=== PATIENT | female | born 1935 | race Caucasian/White ===

== ENCOUNTER 2018-04-09 16:27 | Emergency (ER) | payer MEDICARE, BC ==
[2018-04-09] MEDS ORDERED: Diazepam TAB(*) 5 MG PO ONE (17:57)
[2018-04-09] MEDS ORDERED: predniSONE TAB* 20 MG PO ONE (17:57)
--- NOTE | 2018-04-09 18:24 | RAD ---
INDICATION: Back pain COMPARISON: Bone survey February 14, 2017 TECHNIQUE: Routine PA, lateral, and oblique imaging was performed . FINDINGS: Bones: There are no acute bony findings. There are arthritic changes at L4-L5 and L5-S1 with disc space narrowing, endplate sclerosis, and facet arthropathy. The findings are stable Alignment: Normal Disc spaces: The remaining disc spaces are well-maintained Soft tissues: There are no soft tissue abnormalities. Other: There is sclerosis about the symphysis pubis consistent with chronic osteitis. 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
--- NOTE | 2018-04-09 18:47 | ED ---
Back Pain - HPI Summary HPI Summary: Complains of left hip pain radiating down left leg 2 days. History of pain in left leg and bilateral knee pain but left hip involvement is new. History of surgery for left side lower back pain [address] Read. Denies trauma, fall, lifting, fever, redness or warmth to left hip, N/V, urinary incontinence, urinary retention, change in bowel movement. Pain is worse with walking, much improved when sitting or lying down. Medical history is Parkinson 's, arthritis. - History of Current Complaint Chief Complaint: EDExtremityLower Stated Complaint: LT LEG PAIN Time Seen by Provider: 04/09/18 17:41 Hx Obtained From: Patient, Family/Steam Presser Pain Intensity: 10 - Allergies/Home Medications Allergies/Adverse Reactions: Allergies Allergy/AdvReac Type Severity Reaction Status Date / Time Sulfa (Sulfonamide Allergy Rash Verified 04/09/18 17:03 Antibiotics) Home Medications: Home Medications Multivitamins/Minerals TAB* [Theragran/minerals TAB*] 1 tab PO DAILY 04/09/18 [ History Confirmed 04/09/18] PMH/Surg Hx/FS Hx/Imm Hx Endocrine/Hematology History: Denies: Hx Diabetes, Hx Systemic Lupus Erythematosus Cardiovascular History: Reports: Hx Hypertension Denies: Hx Congestive Heart Failure, Hx Pacemaker/ICD Respiratory History: Denies: Hx Chronic Obstructive Pulmonary Disease (COPD) GI History: Denies: Hx Gastroesophageal Reflux Disease, Hx Ulcer History: Denies: Hx Dialysis, Hx Renal Disease Musculoskeletal History: Reports: Other Musculoskeletal History - BROKEN LEFT FOOT Denies: Hx Rheumatoid Arthritis, Hx Osteoporosis Sensory History: Reports: Hx Cataracts, Hx Contacts or Glasses Denies: Hx Hearing Aid Opthamlomology History: Reports: Hx Cataracts, Hx Contacts or Glasses Neurological History: Reports: Other Neuro Impairments/Disorders Psychiatric History: Denies: Hx Panic Disorder - Cancer History Hx Chemotherapy: No - Surgical History Surgery Procedure, Year, and Place: tonsilectomy Hx Anesthesia Reactions: No Infectious Disease History: No Infectious Disease History: Denies: Traveled Outside the [place] in Last 30 Days - Social History Alcohol Use: None Substance Use Type: Reports: None Smoking Status (MU): Never Smoked Tobacco Review of Systems Constitutional: Negative Eyes: Negative ENT: Negative Cardiovascular: Negative Respiratory: Negative Gastrointestinal: Negative Genitourinary: Negative Positive: Arthralgia, Myalgia Skin: Negative Neurological: Negative Psychological: Normal All Other Systems Reviewed And Are Negative: Yes Physical Exam - Summary Physical Exam Summary: No redness, ecchymosis, swelling, deformity, extra warmth noted to left hip joint. No redness or swelling to left lower extremity. Full range of motion of left foot, left ankle, left knee. Pain is recreatable with left hip flexion. No pain with flexion or extension of right hip, right knee, right ankle. Mildly tender to palpation in left gluteus, left posterior thigh. PMS intact distally. Vital Signs On Initial Exam: Initial Vitals Temp Pulse Resp BP Pulse Ox 97 F 76 16 170/59 97 04/09/18 17:03 04/09/18 17:03 04/09/18 17:03 04/09/18 17:03 04/09/18 17:03 Appearance: Positive: Well-Appearing Skin: Positive: Warm Head/Face: Positive: Normal Head/Face Inspection Eyes: Positive: Normal Neck: Positive: Supple Respiratory/Lung Sounds: Positive: Clear to Auscultation Cardiovascular: Positive: Normal Abdomen Description: Positive: Nontender Musculoskeletal: Positive: Normal Neurological: Positive: Normal Psychiatric: Positive: Normal AVPU Assessment: Alert - [place] Coma Scale Best Eye Response: 4 - Spontaneous Best Motor Response: 6 - Obeys Commands Best Verbal Response: 5 - Oriented Coma Scale Total: 15 Diagnostics - Vital Signs Vital Signs Temp Pulse Resp BP Pulse Ox 04/09/18 18:04 18 04/09/18 17:03 97 F 76 16 170/59 97 - Laboratory Lab Statement: Any lab studies that have been ordered have been reviewed, and results considered in the medical decision making process. - Radiology lumbar Xray Interpretation: No Acute Changes - stable Disc narrowing and arthritic changes at L4-L5, L5-S1 Radiology Interpretation Completed By: Radiologist Re-Evaluation - Re-Evaluation 1 Re-Evaluation Time: 19:11 Change: Unchanged Comment: Valium did not improve the patient's pain. Back Pain Course/Dx - Course Course Of Treatment: Left hip pain, radiating down left leg with walking 2 days. Positive straight leg test on left lower extremity. No indication of redness, warmth, swelling to joints of left lower extremity and physical exam. Vital signs within normal limits and stable. Imaging shows no acute process. Vitamin F ineffective in treating pain. We will give short course of hydrocodone and have patient follow up with neurologist who manages her prior back pain and arthritis. Family agrees to assist patient with daily living activities. - Diagnoses Provider Diagnoses: Sciatica Discharge - Sign-Out/Discharge Documenting (check all that apply): Discharge/Admit/Transfer - Discharge Plan Condition: Stable Disposition: HOME Prescriptions: HYDROcodone/ACETAMIN 5-325 MG* [[place] 5-325 TAB*] 1 tab PO Q6H PRN 2 Days #8 tab MDD 3-4 tabs PRN Reason: Pain predniSONE TAB* [Deltasone TAB*] 40 mg PO DAILY 5 Days #5 tab Patient Education Materials: Sciatica (ED), Lumbar Radiculopathy (ED), Lower Back Exercises (ED) Referrals: James Max MD [Primary Care Provider] - Additional Instructions: Follow-up with your neurologist Dr. Read. Return to ED for any new or worsening symptoms - Billing Disposition and Condition Condition: STABLE Disposition: HOME
[2018-04-09] MEDS ORDERED: HYDROcodone/ACETAMIN 5-325 MG* 1 TAB PO ONE (19:03)
[2018-04-09 19:36] VITALS: BP 133/77
== END 2018-04-09 19:35 | disposition home or self-care (01) ==
LOC: ED 16:27
DX: M54.32 Sciatica, left side (principal); M51.36 Other intervertebral disc degeneration, lumbar region; Z88.2 Allergy status to sulfonamides
CPT/HCPCS: 72110; 99282; A9270-GY; J7512

== ENCOUNTER 2022-05-18 13:48 | Observation (INO) ==
[2022-05-18 15:15] LABS: ABS Basophils 0.1 10^3/ul (0-0.2); ABS Eosinophils 0.2 10^3/ul (0-0.6); ABS Lymphocytes 2.9 10^3/ul (1.0-4.8); ABS Monocytes 1.1 10^3/ul (0-0.8); ABS Neutrophils 6.7 10^3/ul (1.5-7.7); Hematocrit 41 % (35-47); Hemoglobin 13.5 g/dL (12.0-16.0); Lymphocyte % 26.3 %; Mean Corpuscular HGB Conc 33 g/dL (31-36); Mean Corpuscular Hemoglobin 29 pg (27-31); Mean Corpuscular Volume 89 fL (80-97); Mean Platelet Volume 9.4 fL (7.4-10.4); Platelet Count 235 10^3/uL (150-450); Red Blood Count 4.61 10^6 /uL (3.70-4.87); Red Cell Distribution Width 14 % (10-15); White Blood Count 10.9 10^3/uL (3.5-10.8)
[2022-05-18 16:13] LABS: ALT < 3 U/L (7-52); AST 17 U/L (13-39); Albumin 3.7 g/dL (3.2-5.2); Albumin/Globulin Ratio 1.6 (1-3); Alkaline Phosphatase 43 U/L (35-149); Anion Gap 5 mmol/L (2-11); Blood Urea Nitrogen 16 mg/dL (6-24); C Reactive Protein 6.68 mg/L (<8.01); CO2 Carbon Dioxide 28 mmol/L (22-32); Calcium 8.3 mg/dL (8.6-10.3); Chloride 107 mmol/L (101-111); Globulin 2.3 g/dL (2-4); Glucose 78 mg/dL (70-100); Potassium 3.9 mmol/L (3.5-5.0); Sodium 140 mmol/L (135-145); eGFR CKD-EPI 60.3 (>60)
[2022-05-18] MEDS ORDERED: Enoxaparin 40 MG/0.4 ML SYR SUBCUT SCH (20:00)
[2022-05-18] MEDS: Carbidopa/Levodop 25/100 MG TAB PO SCH (20:13)
[2022-05-18] MEDS ORDERED: Carbidopa/Levodop 25/100 MG TAB PO SCH (21:00)
[2022-05-19 00:35] LABS: Erythrocyte Sed Rate 4 mm/Hr (0-29)
[2022-05-19 06:22] LABS: ABS Eosinophils 0.4 10^3/ul (0-0.6); ABS Lymphocytes 3.4 10^3/ul (1.0-4.8); ABS Neutrophils 4.8 10^3/ul (1.5-7.7); Eosinophil % 3.8 %; Hematocrit 41 % (35-47); Lymphocyte % 35.4 %; Mean Corpuscular HGB Conc 34 g/dL (31-36); Mean Corpuscular Hemoglobin 30 pg (27-31); Mean Corpuscular Volume 90 fL (80-97); Mean Platelet Volume 9.8 fL (7.4-10.4); Platelet Count 241 10^3/uL (150-450); Red Blood Count 4.61 10^6 /uL (3.70-4.87); Red Cell Distribution Width 14 % (10-15); White Blood Count 9.6 10^3/uL (3.5-10.8)
[2022-05-19 06:36] LABS: Albumin 3.7 g/dL (3.2-5.2); Calcium 9.2 mg/dL (8.6-10.3); Potassium 4.7 mmol/L (3.5-5.0); Total Bilirubin 1.6 mg/dL (0.2-1.0)
[2022-05-19 06:42] LABS: Albumin/Globulin Ratio 1.6 (1-3); Globulin 2.3 g/dL (2-4); eGFR CKD-EPI 54.5 (>60)
[2022-05-19] MEDS: Carbidopa/Levodop 25/100 MG TAB PO SCH ×2 (09:44→14:47)
[2022-05-19 15:22] VITALS: BP 155/91
== END 2022-05-19 15:52 | disposition home or self-care (01) ==
LOC: EDHOLD 13:48 → ED 13:48 → SUATTDRO 18:48 → SSU 21:51
PROVIDERS: ADMIT Internal Medicine; ATTEND Internal Medicine

== ENCOUNTER 2024-02-05 16:43 | Inpatient (IN) ==
[2024-02-05 17:36] LABS: Hematocrit 37.7 % (35-45); Hemoglobin 13.1 g/dL (11.5-14.3); Mean Corpuscular Hemoglobin 31.2 pg (27-33); Mean Corpuscular Hgb Conc 34.8 g/dL (31-36); Mean Corpuscular Volume 89.7 fL (80-97); Mean Platelet Volume 9.4 fL (7.5-11.2); Platelet Count 244 10^3/uL (150-450); White Blood Count 24.9 10^3/uL (3.8-11.8)
[2024-02-05 17:44] LABS: INR 1.18 (0.83-1.13)
[2024-02-05 18:03] LABS: High Sens Troponin Baseline 9 pg/mL (<15)
[2024-02-05 18:22] LABS: ABS Basophils 0.1 10^3/uL (0.0-0.1); ABS Lymphocytes 1.7 10^3/uL (1.0-4.8); ABS Monocytes 3.1 10^3/uL (0.0-0.9); ABS Nucleated RBC 0.04 10^3/ul; Lymphocyte % 6.7 %; Nucleated Red Blood Cells % 0.2 %/100WBC (0.0-0.8)
[2024-02-05] MEDS: cefTRIAXone 1 gm/50 mL D5W 1 GM/50 ML BAG IV ONE (18:35)
[2024-02-05 18:40] LABS: ALT 44 U/L (7-52); Albumin 3.9 g/dL (3.2-5.2); Albumin/Globulin Ratio 1.3 (1-3); Alkaline Phosphatase 86 U/L (35-149); Anion Gap 11 mmol/L (2-16); Blood Urea Nitrogen 14 mg/dL (6-24); CO2 Carbon Dioxide 25 mmol/L (22-32); Calcium 8.9 mg/dL (8.6-10.3); Chloride 97 mmol/L (101-111); Globulin 2.9 g/dL (2-4); Glucose 104 mg/dL (70-100); Sodium 133 mmol/L (135-145); Total Bilirubin 1.9 mg/dL (0.2-1.0); Total Protein 6.8 g/dL (6.4-8.9)
[2024-02-05 18:40] LABS: C Reactive Protein 163.52 mg/L (<8.01)
[2024-02-05] MEDS: LACTATED RINGERS SEPSIS IV ONE (18:49)
[2024-02-05 19:00] LABS: Urine Appearance Clear; Urine Bilirubin Negative (Negative); Urine Blood 1+ (Negative); Urine Color Yellow; Urine Glucose Negative (Negative); Urine Ketones Trace (Negative); Urine Nitrite Negative (Negative); Urine Protein 1+ (>=30 mg/dL) (Negative); Urine Specific Gravity 1.026 (1.002-1.030); Urine Urobilinogen 2+ (Negative)
[2024-02-05] MEDS: Azithromycin 500 mg/250 ml NS 500 MG/250 ML BAG IVPB ONE (19:05)
[2024-02-05 19:08] LABS: Urine Bacteria Absent /HPF (Absent); Urine Red Blood Cell 1+(3-5/hpf) /HPF (0-Trace); Urine Squamous Epithelial Cell Present /HPF (Absent); Urine White Blood Cell 1+(6-10/hpf) /HPF (0-Trace)
[2024-02-05 19:33] LABS: High Sensitivity Troponin 1 Hr 9 pg/mL (<15)
[2024-02-05] MEDS: Carbidopa/Levodop 25/100 MG TAB PO SCH (22:44)
[2024-02-05] MEDS: CMCS: Rivastigmine 1.5 mg CAP (NF) PO SCH (22:44)
[2024-02-06 06:26] LABS: Hematocrit 37.9 % (35-45); Hemoglobin 12.6 g/dL (11.5-14.3); Mean Corpuscular Hgb Conc 33.4 g/dL (31-36); Mean Corpuscular Volume 89.9 fL (80-97); Mean Platelet Volume 10.1 fL (7.5-11.2); Platelet Count 239 10^3/uL (150-450); Red Blood Count 4.21 10^6/uL (3.63-4.92); Red Cell Distribution Width 13.1 % (12-17)
[2024-02-06 06:43] LABS: Calcium 8.6 mg/dL (8.6-10.3); Creatinine, Serum 0.97 mg/dL (0.51-0.95); Magnesium 1.8 mg/dL (1.9-2.7); Potassium 3.7 mmol/L (3.5-5.0); eGFR CKD-EPI 55.9 (>60)
[2024-02-06 06:47] LABS: ABS Basophils 0.1 10^3/uL (0.0-0.1); ABS Eosinophils 0.1 10^3/uL (0.0-0.5); ABS Lymphocytes 3.1 10^3/uL (1.0-4.8); ABS Monocytes 3.4 10^3/uL (0.0-0.9); ABS Neutrophils 20.4 10^3/uL (1.5-7.6); ABS Nucleated RBC 0.01 10^3/ul; Eosinophil % 0.3 %; Lymphocyte % 11.4 %
[2024-02-06] MEDS: Magnesium Sulfate IV 1GM/100ML 1 GM/100 ML BAG IV ONE (08:01)
[2024-02-06] MEDS: Enoxaparin 30 MG/0.3 ML SYR SUBCUT SCH (08:01)
[2024-02-06] MEDS: Potassium Chlor 20 meq TAB.ER PO ONE (08:12)
[2024-02-06] MEDS: cefTRIAXone 1 gm/50 mL D5W 1 GM/50 ML BAG IV SCH (17:33)
[2024-02-07 06:15] LABS: Mean Corpuscular Hemoglobin 30.7 pg (27-33); Mean Corpuscular Hgb Conc 34.2 g/dL (31-36); Mean Corpuscular Volume 89.9 fL (80-97); Mean Platelet Volume 9.6 fL (7.5-11.2); Platelet Count 269 10^3/uL (150-450); Red Blood Count 4.22 10^6/uL (3.63-4.92); White Blood Count 22.4 10^3/uL (3.8-11.8)
[2024-02-07 06:21] LABS: ABS Basophils 0.1 10^3/uL (0.0-0.1); ABS Eosinophils 0.1 10^3/uL (0.0-0.5); ABS Lymphocytes 2.7 10^3/uL (1.0-4.8); ABS Monocytes 2.4 10^3/uL (0.0-0.9); ABS Neutrophils 17.1 10^3/uL (1.5-7.6); ABS Nucleated RBC 0.02 10^3/ul; Eosinophil % 0.3 %; Nucleated Red Blood Cells % 0.1 %/100WBC (0.0-0.8)
[2024-02-07 06:45] LABS: Calcium 8.4 mg/dL (8.6-10.3); Creatinine, Serum 1.03 mg/dL (0.51-0.95); Potassium 4.1 mmol/L (3.5-5.0)
[2024-02-07 09:33] VITALS: BP 125/52
== END 2024-02-07 12:25 | disposition home or self-care (01) | DRG 871 ==
LOC: ED 16:43 → EDHOLD 16:43 → SUATTDRO 19:36 → MEDTELE 21:15 → SUATTDRO 02-06 11:30
PROVIDERS: ADMIT Student in an Organized Health Care Education/Training Program; ATTEND Internal Medicine